=== PATIENT | female | born 1980 | race Two or more races ===

== ENCOUNTER → 2020-05-04 | Outpatient (CLI) | payer MEDICAID ==
[2020-05-04 15:35] LABS: BASOPHILS % (AUTO) 0 % (0-1); EOSINOPHILS % (AUTO) 1 % (1-7); LYMPHOCYTES % (AUTO) 41 % (22-44); MEAN CORPUSCULAR HEMOGLOBIN 31.4 pg (27.0-34.8); MEAN CORPUSCULAR HGB CONC 34.2 g/dL (32.4-35.8); MEAN PLATELET VOLUME 7.6 fL (7.4-10.4); MONOCYTES % (AUTO) 5 % (2-9); NEUTROPHILS % (AUTO) 53 % (42-75); PLATELET COUNT 281 x10^3/uL (130-400); RED BLOOD COUNT 4.28 x10^6/uL (3.82-5.3); RED CELL DISTRIBUTION WIDTH 12.6 % (9.6-15.2)
[2020-05-04 15:43] LABS: MD NO
[2020-05-04 15:47] LABS: INTERNATIONAL NORMALIZED RATIO 1.06 (0.93-1.1); PROTHROMBIN TIME 11.2 Seconds (9.6-11.5)
[2020-05-04 15:48] LABS: ALANINE AMINOTRANSFERASE 28 U/L (12-78); ALBUMIN 4.3 g/dL (3.4-5.0); ANION GAP 7 mmol/L (5-15); CALCIUM 9.3 mg/dL (8.5-10.1); CHLORIDE 106 mmol/L (98-107); CREATININE 0.68 mg/dL (0.55-1.02)
[2020-05-04 15:53] LABS: ALKALINE PHOSPHATASE 98 U/L (45-117); BILIRUBIN,TOTAL 0.5 mg/dL (0.2-1.0); TOTAL PROTEIN 7.7 g/dL (6.4-8.2)
== END | disposition home or self-care (01) ==
LOC: STAR 13:36
PROVIDERS: ATTEND Specialist
DX: Z01.812 Encounter for preprocedural laboratory examination (principal); Z20.828 Contact with and (suspected) exposure to other viral communicable diseases; C78.80 Secondary malignant neoplasm of unspecified digestive organ; C56.9 Malignant neoplasm of unspecified ovary; C79.89 Secondary malignant neoplasm of other specified sites; R87.620 Atypical squamous cells of undetermined significance on cytologic smear of vagina (ASC-US); M89.9 Disorder of bone, unspecified; Z90.710 Acquired absence of both cervix and uterus
CPT/HCPCS: 80053; 84703; 85025; 85610; 85730; 87635; 93005

== ENCOUNTER 2020-05-05 13:44 | Outpatient (CLI) | payer MEDICAID | END 2020-05-05 23:59 | disposition home or self-care (01) | LOC: STAR 13:44 | PROVIDERS: ATTEND Specialist | DX: Z01.818 Encounter for other preprocedural examination (principal); C78.80 Secondary malignant neoplasm of unspecified digestive organ; C56.9 Malignant neoplasm of unspecified ovary; C79.89 Secondary malignant neoplasm of other specified sites; R87.620 Atypical squamous cells of undetermined significance on cytologic smear of vagina (ASC-US); M89.9 Disorder of bone, unspecified; Z90.710 Acquired absence of both cervix and uterus | CPT/HCPCS: 71046 ==

== ENCOUNTER 2020-05-10 11:30 | Inpatient (IN) | payer BC, MEDICAID ==
[~2020-05-10] VITALS: Ht 149.9 cm; Wt 52.4 kg
[2020-05-10 13:18] VITALS: BP 119/78
[2020-05-10] MEDS ORDERED: CHLORHEXIDINE 15 ML UDC MM ONE (13:30)
[2020-05-10] MEDS ORDERED: LACTATED RINGERS 1,000 ML IV SCH (13:30)
[2020-05-10] MEDS ORDERED: CEFOTETAN PMX 2GM/50ML 50 ML IV ONE (13:30)
[2020-05-10] MEDS ORDERED: INDIGO CARMINE 0.8%, 5ML ONE (16:09)
[2020-05-10] MEDS ORDERED: HEPARIN 1,000 UNITS/ML, 10ML ONE (16:09)
[2020-05-10] MEDS ORDERED: METHYLENE BLUE 50 MG/10 ML AMP ONE (16:09)
[2020-05-10] MEDS ORDERED: MIDAZOLAM 1 MG/ML, 2ML ONE (16:31)
[2020-05-10] MEDS ORDERED: FENTANYL PF 250 MCG/5ML ONE (16:31)
[2020-05-10] MEDS ORDERED: PROPOFOL 10 MG/ML, 20ML ONE (16:34)
[2020-05-10] MEDS ORDERED: ROCURONIUM 10 MG/ML,10ML ONE (16:43)
[2020-05-10] MEDS ORDERED: DEXAMETHASONE 4 MG/ML, 1ML ONE (16:43)
[2020-05-10] MEDS ORDERED: SUGAMMADEX 200 MG/2 ML IVPush ONE (17:13)
[2020-05-10] MEDS ORDERED: ONDANSETRON 2MG/ML, 2ML ONE ×3 (17:14→17:47)
[2020-05-10] MEDS ORDERED: BUPIVACAINE/PF-EPI 0.25% 1:200K INFIL ONE (17:15)
[2020-05-10] MEDS ORDERED: BUPIVACAINE/PF 0.25% ONE (17:21)
[2020-05-10] MEDS ORDERED: EPINEPHRINE 1 MG/ML, 1ML ONE (17:22)
[2020-05-10] MEDS ORDERED: ACETAMINOPHEN 325 MG TABLET PO PRN (17:30)
[2020-05-10] MEDS ORDERED: hydrALAzine 20 MG/ML, 1ML IV PRN (17:30)
[2020-05-10] MEDS ORDERED: ONDANSETRON 2MG/ML, 2ML IVPush PRN (17:30)
[2020-05-10] MEDS ORDERED: PROMETHAZINE 12.5 MG SUPP PR PRN (17:30)
[2020-05-10] MEDS ORDERED: PROMETHAZINE 25 MG/ML, 1ML IVPush PRN (17:30)
[2020-05-10] MEDS ORDERED: ALBUTEROL SULFATE 2.5 MG/3 ML NPPB PRN (17:30)
[2020-05-10] MEDS ORDERED: LABETALOL 5MG/ML, 20ML IV PRN (17:30)
[2020-05-10] MEDS ORDERED: OXYcodone 5 MG/5 ML ORAL.SOL UDC PO PRN (17:30)
[2020-05-10] MEDS ORDERED: MEPERIDINE/PF 25MG/0.5ML IVPush PRN (17:30)
[2020-05-10] MEDS ORDERED: DIPHENHYDRAMINE 50 MG/ML, 1ML IVPush PRN (17:30)
[2020-05-10] MEDS ORDERED: EPHEDRINE 50 MG/ML, 1ML IVPush PRN (17:30)
[2020-05-10] MEDS ORDERED: MIDAZOLAM 1 MG/ML, 2ML IV PRN (17:30)
[2020-05-10] MEDS ORDERED: FENTANYL PF 100 MCG/2ML ONE (17:47)
[2020-05-10] MEDS: FENTANYL PF 100 MCG/2ML IV PRN ×2 (17:49→18:01)
[2020-05-10] MEDS ORDERED: HYDROmorphone 1 MG/ML, 1ML INJ ONE ×2 (17:54→18:44)
[2020-05-10] MEDS ORDERED: PROMETHAZINE 25 MG/ML, 1ML ONE (17:58)
[2020-05-10] MEDS: HYDROmorphone 1 MG/ML, 1ML INJ IVPush PRN ×3 (18:06→18:46)
[2020-05-10] MEDS ORDERED: DIAZEPAM 5 MG/ML, 2ML ONE (18:15)
[2020-05-10] MEDS: DIAZEPAM 5 MG/ML, 2ML IVPush PRN ×2 (18:17→18:31)
[2020-05-10] MEDS ORDERED: ACETAMINOPHEN 650 MG/20.3 ML UDC PO STA (20:09)
[2020-05-10] MEDS ORDERED: ACETAMINOPHEN 650 MG/20.3 ML UDC ONE (20:17)
== END 2020-05-10 21:35 | disposition home or self-care (01) | DRG 580 ==
LOC: ORIP 12:05
PROVIDERS: ADMIT Specialist; ATTEND Specialist
PROC: 0WBF0ZZ Excision of Abdominal Wall, Open Approach (ICD-10-PCS; principal; 2020-05-10 14:00)
DX: R22.9 Localized swelling, mass and lump, unspecified (principal); C56.9 Malignant neoplasm of unspecified ovary
CPT/HCPCS: 36415; 86850; 86900; 86923; 88305; J0171; J1100; J1170; J1644; J2250; J2405; J2550; J2704; J3010; J3360; Q9968; J7120